=== PATIENT | male | born 1960 | race Caucasian/White ===

== ENCOUNTER 2017-11-14 07:52 | Day surgery (SDC) | payer OTHER ==
[~2017-11-14] VITALS: Ht 182.9 cm; Wt 70.2 kg
[~2017-11-14 07:52] MED LIST: ASPI1TAB69 PO; ATOR40TA16 PO; CLOP75TA PO; LISI-515 PO; MEGE40TA PO; METO25TA3 PO; MULT-65 PO
[2017-11-14] MEDS ORDERED: IOHEXOL 350 MG/ML 100 ML BTL (for Cath Lab) OTHER ONE (07:53)
[2017-11-14] MEDS ORDERED: HEPARIN-NS/PF FLUSH BAG 2,000 ML IV FLUSH ONE (08:25)
[2017-11-14] MEDS ORDERED: HEPARIN SODIUM - IV 10,000 UNITS/10 ML VIAL ONE (08:26)
[2017-11-14] MEDS ORDERED: MIDAZOLAM HCL 2 MG/2 ML VIAL ONE (08:26)
[2017-11-14 09:06] LABS: AUTOMATED NEUTROPHIL # 6.8 TH/MM3 (1.8-7.7); BASOPHIL % 0.5 % (0.0-2.0); EOSINOPHIL # 0.3 TH/MM3 (0-0.4); EOSINOPHIL % 2.8 % (0.0-4.0); HEMATOCRIT 38.1 % (39.0-51.0); HEMOGLOBIN 13.2 GM/DL (13.0-17.0); LYMPH % 16.1 % (9.0-44.0); LYMPHOCYTE # 1.5 TH/MM3 (1.0-4.8); MEAN CELL VOLUME 93.7 FL (80.0-100.0); MEAN CORPUSCULAR HEMOGLOBIN 32.4 PG (27.0-34.0); MEAN CORPUSCULAR HGB CONC 34.6 % (32.0-36.0); MEAN PLATELET VOLUME 6.7 FL (7.0-11.0); MONO % 8.2 % (0.0-8.0); MONOCYTE # 0.8 TH/MM3 (0-0.9); NEUT % 72.4 % (16.0-70.0); PLATELET COUNT 407 TH/MM3 (150-450); RED BLOOD COUNT 4.07 MIL/MM3 (4.50-5.90); RED CELL DISTRIBUTION WIDTH 17.2 % (11.6-17.2); WHITE BLOOD COUNT 9.3 TH/MM3 (4.0-11.0)
[2017-11-14 09:27] LABS: CALCIUM 8.4 MG/DL (8.5-10.1); CREATININE 0.7 MG/DL (0.60-1.30)
[2017-11-14] MEDS ORDERED: ECASA81 PO (09:48)
[2017-11-14] MEDS ORDERED: ENZA40CA PO (09:48)
--- NOTE | 2017-11-14 09:49 | PD.VS.PN ---
Pre-operative Note Pre-operative diagnosis: PAD L LE Planned procedure: aortogram w/ L LE angiogram Interval History: Pt with persistent pain, likely multifactorial. Ready for surgery. Labs: Laboratory Results Test 11/14/17 08:45 Anion Gap 7 MEQ/L (5-15) Blood Urea Nitrogen 20 MG/DL (7-18) Creatinine 0.70 MG/DL (0.60-1.30) Random Glucose 87 MG/DL (74-106) Calcium Level 8.4 MG/DL (8.5-10.1) Sodium Level 142 MEQ/L (136-145) Potassium Level 4.0 MEQ/L (3.5-5.1) Chloride Level 109 MEQ/L (98-107) Carbon Dioxide Level 26.0 MEQ/L (21.0-32.0) Hematocrit 38.1 % (39.0-51.0) Hemoglobin 13.2 GM/DL (13.0-17.0) Mean Corpuscular Hemoglobin 32.4 PG (27.0-34.0) Mean Corpuscular Hemoglobin Concent 34.6 % (32.0-36.0) Mean Corpuscular Volume 93.7 FL (80.0-100.0) Mean Platelet Volume 6.7 FL (7.0-11.0) Platelet Count 407 TH/MM3 (150-450) Red Blood Count 4.07 MIL/MM3 (4.50-5.90) Red Cell Distribution Width 17.2 % (11.6-17.2) White Blood Count 9.3 TH/MM3 (4.0-11.0) Blood: none needed Imaging: CTA from Dec reviewed. Short segment proximal SFA occlusion. Orders: NPO Post-operative destination: [facility]U Operative site marked: Yes Consent: Informed consent has been obtained from Phu Dover III. I have explained the procedure in detail and discussed the risks, benefits, and potential complications. All questions have been answered. Patient contact information: [phone] Brent Giron MD Nov 14, 2017 09:49
[2017-11-14 09:50] VITALS: BP 115/83; PULSE 74; RESP 16; TEMP 97.9; O2SAT 100
[2017-11-14] MEDS ORDERED: SODIUM BICARBONATE 100 MEQ in D5W 1000 ML IV SCH (10:00)
[2017-11-14] MEDS ORDERED: ceFAZolin INJ 1,000 MG VIAL ONE (10:52)
--- NOTE | 2017-11-14 11:01 | CATHPROC ---
[email or web address] HIS Report Study Information Study Number Admission Scheduled Start Study Start [id number] Nov 14 2017 7:52AM 11/14/2017 Nov 14 2017 9:53AM [facility] Service Cath Endovascular Study Admit Source Facility Department Emergency department [facility] - Export Agent Physician and Clinical Staff Initial MD Giron, Brent Store Sales Leader Mela Rouse,RN Recorder Ahsan Cope,RT(R) Scrub Mason Tai,RT(R) Procedures Performed Procedure Location (Site) Vessel Name Abdominal Angiogram Abd Aorta (A3) Aorta Periph stent SFA (left) Femoral Art SIGN LANGUAGE TEACHER SFA (left) Femoral Art Wire insertion Fem Art (right) Femoral Art Equipment Time Accounting Practice Manager Description Size Mfg Part Number Used/Scraped [id number] 10:10 ANGIO-DYNAMICS OMNI FLUSH 65CM CATHETER FR 4 Used *[id number] 10:15 ANGIO-DYNAMICS OMNI FLUSH 65CM CATHETER FR 5 Used *[id number] INTRODUCER SET, 10:10 [employer] FR 5 [id number] *[id number] Used MICROPUNCTURE, STIFFENED CXI-4.0-35-135- 10:19 COOK/REGINA CATHETER, FR4 CXI SUPPORT FR 4 Used P-NS-0 *[id number] SHEATH, FR6 DAVE 1 FLEXOR [id number] 10:17 COOK/REGINA FR 6 Used 55CM *[id number] WIRE, GUIDE APPROACH WAREHOUSE PRODUCTION WORKER [id number] 10:19 COOK/REGINA 300CM Used MICROWIRE *[id number] 10:40 DAIG/ST. [employer] MEDICAL ANGIOSEAL, FR6 VIP FR 6 Used *[id number] ENDOVASCULAR BGC02-27-419- 10:52 STENT, EVERFLEX 6 X 200 120CM 6 X 200 Used COMPANY 120 BALLOON, ADMIRAL EXTREME 5 X [id number] 10:38 [employer] 130CM Used 120 130CM *[id number] 10:28 Primo[employer] WIRE, THRU-WAY 300CM 300CM 17328 *[id number] Used 10:28 [employer] WIRE, THRU-WAY 300CM 300CM 17235 *[id number] Used [id number] 10:10 App Partner PACK, CCL CUSTOM * Used *[id number] 10:10 [employer] MEDICAL PRESSURE TUBING 48" 48" [id number] Used [id number] 10:17 [employer] MEDICAL WIRE, RENDON 260CM .035 260CM Used *[id number] 10:10 NAMIC TUBING, HIGH PRESSURE 20" 20" Used *[id number] TUBING, PRESSURE INJECTION [id number] 10:10 NAMIC PACER 72" Used 72" *[id number] 10:10 NYCOMED OMNIPAQUE, 300 MG, 150ML 150ML [id number] Used 10:10 NYCOMED OMNIPAQUE, 300 MG, 50ML 50ML [id number] Used [id number] 10:10 PADILLA MEDICAL BLANKET,WARM AIR CCL * Used *[id number] 10:10 TERUMO MEDICAL SHEATH, FR4 TERUMO (10CM) FR 4 Used *[id number] WIRE, ANGLED GLIDE .035 [id number] 10:10 TERUMO MEDICAL/REGINA 260CM Used 260CM *[id number] 10:28 VOLCANO CATHETER, PIONEER PLUS FR 6 Used *[id number] Equipment Model, Serial, Lot Number and Expiration Data Description Model Number Serial Number Lot Number Expiration Date ANGIOSEAL, FR6 VIP [id number] 08-08-2018 CATHETER, FR4 CXI SUPPORT [id number] 06-27-2020 SHEATH, FR6 DAVE 1 FLEXOR [id number] 07-29-2020 55CM STENT, EVERFLEX 6 X 200 120CM [id number] 10-01-2020 WIRE, GUIDE APPROACH WAREHOUSE PRODUCTION WORKER [id number] 11-02-2021 MICROWIRE History: Allergies Allergy Reaction No Known Allergies Labs Hgb (g/dl) Hct (%) 11.60-17.00 35.00-51.00 13.2 38.1 Glucose (mg/dl) BUN (mg/dl) Creatinine (mg/dl) BUN:Creatinine (1:x) 74.00-106.00 7.00-18.00 0.50-1.30 10.00-20.00 87 20 0.7 28.6 Na (meq/l) K (meq/l) 136.00-145.00 3.50-5.10 142 4 CPK-MB (ng/ML) 0.50-3.60 Not Drawn Medication Medication Total Dose (Bolus/Oral) Medication Total Dosage/Unit 1% XYLOCAINE 20 mL FENTANYL 150 mcg HEPARIN 5000 units VERSED 2 mg Medications (Bolus/Oral) Medication Time Given Dosage/Unit Administered By Reason VERSED 11/14/2017 10:07:26 AM 1 mg Adamy, Mela 1 mg VERSED given in lab by Mela Rouse RN in Right Groin via Peripheral IV. Ordered by Brent Giron. 1% XYLOCAINE 11/14/2017 10:08:02 AM 20 mL Brent Giron Patient arrived on 20 mL 1% XYLOCAINE given by Brent Giron in Right Groin via Subcutaneous. Ordere d by Brent Giron. FENTANYL 11/14/2017 10:08:15 AM 50 mcg Adamy, Mela 50 mcg FENTANYL given in lab by Mela Rouse RN via Peripheral IV. Ordered by Brent Giron. HEPARIN 11/14/2017 10:18:06 AM 5000 units Mela Rouse 5000 units HEPARIN given in lab by Mela Rouse RN in Right Wrist via Peripheral IV. Ordered by Brent Oconnor. VERSED 11/14/2017 10:20:11 AM 1 mg Adamy, Mela 1 mg VERSED given in lab by Mela Rouse RN via Peripheral IV. Ordered by Brent Giron. FENTANYL 11/14/2017 10:21:28 AM 50 mcg Adamy, Mela 50 mcg FENTANYL given in lab by Mela Rouse RN via Peripheral IV. Ordered by Brent Giron. FENTANYL 11/14/2017 10:44:21 AM 50 mcg Adamy, Mela 50 mcg FENTANYL given in lab by Mela Rouse RN via Peripheral IV. Ordered by Brent Giron. Medication (Drip) Medication Time Given Dosage/Unit Concentration/Unit Diluent (ml) Solution IV Solutions 11/14/2017 10:01:43 AM 0 mL (IV) 500 NaCl .9 Patient arrived on IV Solutions given by Brent Giron in Right Wrist via Peripheral IV. Pump/Drip F low = 20 ml/hr using NaCl .9. Ordered by Brent Giron. KEFZOL 11/14/2017 10:55:44 AM 2 mg 2 mg KEFZOL given in lab by Mela Rouse RN via Peripheral IV. Ordered by Brent Giron. Initial Case Assessment Cardiovascular HR Rhythm NIBP Chest Pain 60 sr 130/74 0 Edema Present Skin color Skin None Normal Warm Dry Circulatory - Right Pulses Femoral 3 Scale (0,1,2,3,4,d) Circulatory - Left Pulses Femoral 3 Scale (0,1,2,3,4,d) Neurological State Oriented to time-place- Alert Moves all extremities person Respiration - General Respiration Rate SpO2 (%) O2 (lpm) (B/min) 18 100 0 Chronological Log Time Study Chronological Log 9:54:09 Patient arrived via Bed. 9:54:10 Patient Name, D.O.B, / Armband Verified By R.N. 9:54:11 Consent signed by the physician and the patient and verified by the Export Agent staff. 9:54:12 Pre-op and post- op instructions given; patient acknowledges understanding of instructions. Vitals capture started with the following parameters, Patient=Adult, Interval=5 min, Initial Pr bleypg=103 mmHg, 10:00:30 Deflation Rate=5 mmHg, Cuff placed on Right Ankle 10:00:56 Verbal Stimulation=2 Physical Stimulation=2 Airway=2 Respiration=2 TOTAL=8. (0=absent, 1=li mited, 2=present) 10:01:00 HR=63 bpm, RYNM=217/74 mmhg, XiS5=479.0 %, Resp=11 B/min, Antonio=2 10:01:06 Patient has been NPO for More than 6Hrs. 10:01:16 Skin Breakdown-hernia present in right groin. 10:01:29 A # 20 IV was noted in the Wrist (right). Grade = 0 Patient arrived on IV Solutions given by Brent Giron in Right Wrist via Peripheral IV. Pump/ Drip Flow = 20 ml/hr 10:01:43 using NaCl .9. Ordered by Brent Giron. 10:02:02 History and physical on the chart or being dictated. 10:02:06 Reference ECG taken Assessment: Initial Case, HR=60 BPM, Rhythm=sr, AQVI=582/74 mmhg, Chest Pain=0, Edema=None, Col or=Normal, Skin = Warm, Dry Right Pulses: Femoral=3 10:02:08 Left Pulses: Femoral=3 Neurological: State=Alert, Ox3, ARRIOLA Respiration: Resp=18 B/min, AcI7=567 %, O2=0 lpm 10:02:39 Bilateral groins prepped with 2% chlorhexidine, and draped after a 3 minute waiting time. 10:06:03 HR=63 bpm, CDYB=548/77 mmhg, EvY9=872.0 %, Resp=18 B/min, Antonio=2 10:06:30 MD arrived. Time Out. Correct patient, correct procedure, correct physician, power injector loaded with con trast with surgical team 10:07:14 present. Time Out Concurred by MD and individual staff in procedure. Loaded by Robyn Rouse rn, ve rified by Mason Tai. 10:07:26 1 mg VERSED given in lab by Mela Rouse, RN in Right Groin via Peripheral IV. Ordered Brent Sánchez. 10:07:51 Case Start 10:07:54 Verbal Stimulation=2 Physical Stimulation=2 Airway=2 Respiration=2 TOTAL=8. (0=absent, 1=li mited, 2=present) Patient arrived on 20 mL 1% XYLOCAINE given by Brent Giron in Right Groin via Subcutaneous. Ordered by Mack 10:08:02 Brent. 10:08:15 50 mcg FENTANYL given in lab by Mela Rouse, JM via Peripheral IV. Ordered by Abiola Giron. 10:09:42 Access site was Right Femoral Artery. A INTRODUCER SET, MICROPUNCTURE, STIFFENED FR 5 was advanced into the Fem Art (right) using the 10:10:01 Percutaneous technique. A SHEATH, FR4 TERUMO (10CM) FR 4 was exchanged in the Fem Art (right). This was necessary in or laure to 10:10:19 accomodate a larger catheter. A OMNI FLUSH 65CM CATHETER FR 4 was advanced over a wire. OMNIPAQUE, 300 MG, 150ML 150ML was us ed for 10:10:27 injections. 10:10:32 Wire removed 10:10:34 Through a OMNI FLUSH 65CM CATHETER FR 5, The Abdominal Aorta was injected with 10 cc's of c ontrast. 10:11:04 HR=64 bpm, TOHZ=005/73 mmhg, SpO2=99.0 %, Resp=7 B/min, Antonio=2 10:11:58 A WIRE, ANGLED GLIDE .035 260CM 260CM was inserted via Fem Art (right). After removing the current catheter a OMNI FLUSH 65CM CATHETER FR 4 was advanced over a WIRE, A NGLED GLIDE 10:12:08 .035 260CM 260CM. 10:13:06 Wire removed 10:13:13 Injections down left leg through 4 spanish omniflush catheter. 10:16:40 HR=61 bpm, TRVV=009/67 mmhg, SpO2=99.0 %, Resp=11 B/min, Antonio=2 10:17:33 A WIRE, RENDON 260CM .035 260CM was inserted via Fem Art (right). A SHEATH, FR6 DAVE 1 FLEXOR 55CM FR 6 was exchanged in the Fem Art (right). This was necessary in order to 10:17:37 accomodate a larger catheter. 10:18:06 5000 units HEPARIN given in lab by Mela Rouse RN in Right Wrist via Peripheral IV. Or dered by Brent Giron. A CATHETER, FR4 CXI SUPPORT FR 4 was advanced over a wire. OMNIPAQUE, 300 MG, 150ML 150ML was u sed for 10:19:39 injections. 10:19:48 The previous wire was exchanged for a WIRE, GUIDE APPROACH WAREHOUSE PRODUCTION WORKER MICROWIRE 300CM. 10:20:11 1 mg VERSED given in lab by Mela Rouse RN via Peripheral IV. Ordered by Rinku Giron 10:21:00 HR=66 bpm, SAES=482/82 mmhg, WsM7=964.0 %, Resp=5 B/min, Antonio=2 10:21:28 50 mcg FENTANYL given in lab by Mela Rouse RN via Peripheral IV. Ordered by Abiola Giron. 10:21:52 The previous wire was exchanged for a WIRE, ANGLED GLIDE .035 260CM 260CM. 10:24:01 The previous wire was exchanged for a WIRE, GUIDE APPROACH WAREHOUSE PRODUCTION WORKER MICROWIRE 300CM. 10:26:05 HR=63 bpm, KPTI=379/68 mmhg, SpO2=98.0 %, Resp=13 B/min, Natonio=2 10:27:45 The previous wire was exchanged for a WIRE, THRU-WAY 300CM 300CM. A CATHETER, PIONEER PLUS FR 6 was advanced over a wire. OMNIPAQUE, 300 MG, 150ML 150ML was used for 10:29:47 injections. 10:30:58 A WIRE, THRU-WAY 300CM 300CM was inserted via Fem Art (right). 10:31:02 HR=62 bpm, VAND=867/60 mmhg, SpO2=97.0 %, Resp=14 B/min, Antonio=2 10:33:41 [place] Catheter was removed 10:34:58 A WIRE, RENDON 260CM .035 260CM was inserted via Fem Art (right). A CATHETER, FR4 CXI SUPPORT FR 4 was advanced over a wire. OMNIPAQUE, 300 MG, 150ML 150ML was u sed for 10:35:04 injections. 10:36:01 HR=58 bpm, ZACI=388/82 mmhg, SpO2=98.0 %, Resp=10 B/min, Antonio=2 10:36:23 Wire removed 10:37:16 Catheter was removed A BALLOON, ADMIRAL EXTREME 5 X 120 130CM 130CM was inserted over WIREJULIETA 260CM .035 260CM v ia the 10:38:33 SFA (left). 10:39:34 In the SFA (left) a BALLOON, ADMIRAL EXTREME 5 X 120 130CM 130CM was inflated to 6 atms for 180 seconds. 10:41:39 HR=60 bpm, PXFU=137/90 mmhg, SpO2=99.0 %, Resp=15 B/min, Antonio=2 10:44:06 In the SFA (left) a BALLOON, ADMIRAL EXTREME 5 X 120 130CM 130CM was inflated to 6 atms for 180 seconds. 10:44:21 50 mcg FENTANYL given in lab by Mela Rouse RN via Peripheral IV. Ordered by Mack R liz. 10:46:04 In the SFA (left) a BALLOON, ADMIRAL EXTREME 5 X 120 130CM 130CM was inflated to 6 atms for 180 seconds. 10:46:08 HR=59 bpm, EBEC=631/88 mmhg, YuR4=549.0 %, Resp=15 B/min, Antonio=2 10:48:58 Balloon Removed. 10:51:13 HR=57 bpm, DRYS=273/78 mmhg, SpO2=98.0 %, Resp=6 B/min, Antonio=2 A STENT, EVERFLEX 6 X 200 120CM 6 X 200 was advanced through a catheter over a WIRE, RENDON 260C M .035 10:51:20 260CM. A STENT, EVERFLEX 6 X 200 120CM 6 X 200 was deployed at ~CYDNEY~ atmospheres for ~SECONDS~ seconds in the SFA 10:52:00 (left). Self Expanding stent deployed. 10:53:21 Delivery device removed A BALLOON, ADMIRAL EXTREME 5 X 120 130CM 130CM was inserted over WIRE, RENDON 260CM .035 260CM v ia the 10:55:27 SFA (left). 10:55:39 In the SFA (left) a BALLOON, ADMIRAL EXTREME 5 X 120 130CM 130CM was inflated to 6 atms for 20 seconds. 10:55:44 2 mg KEFZOL given in lab by Mela Rouse RN via Peripheral IV. Ordered by Rinku Giron 10:56:12 HR=57 bpm, JDAZ=991/77 mmhg, SpO2=98.0 %, Resp=25 B/min, Antonio=2 10:56:40 Balloon Removed. 10:56:41 Wire removed 10:57:03 ANGIOSEAL, FR6 VIP FR 6 placement in the Fem Art (right) 10:58:15 Sterile dressing applied to site 10:58:16 No case complications noted. 10:58:18 Cine recording checked. 10:58:20 Bedside Report will be given. 10:58:21 Implantable Device card placed in patient's chart. 11:00:05 Patient moved to stretcher 11:01:09 Vitals capture stopped. End Study - Contrast Media Used In Study Contrast Total Opened (mL) Total Used (mL) Total Wasted (mL) Omnipaque 55 55 0 End Study - Maximum Contrast Load Max Contrast Load (mL) 493.5 End Study - Radiation Exposure Fluoro Time (minutes) 14.3 End Study - Patient Disposition Complications Transferred To No Telemetry Bed
--- NOTE | 2017-11-14 11:12 | HHI.PR ---
cc: Brent Giron MD Immediate Post Op Note Procedure Date: Nov 14, 2017 Pre Op Diagnosis: PAD , L LE claudication Post Op Diagnosis: PAD , L LE claudication Surgeon: Brent Giron Motion Picture Director(s): none Procedure: Aortogram w/ L LE angiogram L SFA ROAD REPAIRER /stent Findings: L SFA occlusion, recanalized and ROAD REPAIRER/stent (6x200) Additional Information: R CLEANER ASSISTANT Angioseal Complications: none Estimated blood loss: 10mL Anesthesia: MAC Drains: None Patient to: Other (DOCU) Patient Condition: Good Implant/Devices: SEE IMPLANT LOG (if applicable) Date/Time of Procedure: SEE SURGICAL CARE RECORD Brent Giron MD Nov 14, 2017 11:12
[2017-11-14] MEDS ORDERED: CLOPIDOGREL 75 MG TAB PO ONE (11:15)
--- NOTE | 2017-11-14 20:11 | MP ---
cc: Brent Giron MD, Robert J MD DATE OF OPERATION: 11/14/2017 PREOPERATIVE DIAGNOSIS: Left lower extremity claudication, peripheral arterial occlusive disease. POSTOPERATIVE DIAGNOSIS: Left lower extremity claudication, peripheral arterial occlusive disease. PROCEDURE 1. Aortogram with left lower extremity angiogram. 2. Left superficial femoral artery angioplasty and stent with a 6 x 200 self-expanding stent. 3. Right common femoral artery Angio-Seal. ATTENDING SURGEON: Brent Giron MD ANESTHESIA: Local with sedation. INDICATIONS: Mr. Dover is a 57-year-old gentleman with left lower extremity peripheral vascular occlusive disease and leg pain that is multifactorial, but likely includes a component of vasculogenic claudication. He is taken to the operating room for angiographic evaluation and treatment. There was no prior catheter-based imaging available for my review. PROCEDURE IN DETAIL: Informed consent was obtained from the patient. He was taken to the operating room and placed supine on the operating room table. An appropriate timeout was taken to ensure patient's identity, the operative site and the planned procedure. Ancef 2 grams was initiated prior to the stent implantation and will be discontinued after a single preoperative dose. Everyone in the room agreed with the timeout and we proceeded. His bilateral groins were prepped and draped. The right groin was anesthetized with 1% lidocaine. A 21-gauge micropuncture needle was used to access to the right common femoral artery. This was exchanged using Seldinger technique for a micropuncture sheath, through which a 0.035 Glidewire was introduced and the micropuncture sheath was exchanged for a 4-Kazakh sheath. A VCF catheter was placed over the wire and through the sheath and the aortogram and pelvic arteriogram was obtained. The Glidewire was navigated down to the left common femoral artery. The VCF catheter was advanced over this and the left lower extremity arteriogram was obtained. The patient was systemically heparinized with 5000 units of IV heparin. A 0.035 Wang wire was advanced down to the proximal superficial femoral artery and the VCF catheter and 4-Kazakh sheath were removed and a 6-Kazakh 55 cm Amplatz sheath was introduced. A CXI catheter was placed over the wire and through the sheath and a FIBER GLASS WORKER wire was exchanged in lieu of the Wang wire. The FIBER GLASS WORKER wire and CXI catheter were advanced down to the mid superficial femoral artery, but could not be traversed past this due to the calcific nature of the lesions. The FIBER GLASS WORKER wire was exchanged for a Glidewire and this was used to navigate down to the distal superficial femoral artery and we reentered the true lumen in the popliteal artery. This was confirmed angiographically by advancing the CXI catheter. A Wang wire was reintroduced and the entire superficial femoral artery was angioplastied with a 5 mm balloon. The completion angiogram showed a residual stenosis and this was treated with a 6 x 200 balloon which was post-dilated to 5 mm. Completion angiogram showed excellent result without any recoil, extravasation or flow-limiting dissection. There were no embolic complications. The wire, catheter and sheath were removed and the groin was closed with Angio-Seal. There were no complications. I was present, scrubbed and performed the entire procedure. INTERPRETATION: The patient has patent infrarenal aorta, common iliac arteries, external iliac arteries and hypogastric arteries bilaterally. The left common femoral artery is calcified, but minimal luminal encroachment on the 2-D angiography. The profunda is patent. The superficial femoral artery is occluded after about 1 cm and then reconstitutes via profunda based collaterals down to the above-knee popliteal artery. After recanalizing the superficial femoral artery and angioplasty, there is no residual stenosis. The completion angiogram showed excellent technical result with no embolic complications. MD CYDNEY Parker//an , 06:01 PM , 07:53 PM
== END 2017-11-14 14:15 | disposition home or self-care (01) ==
LOC: HDOC 07:52 → HDIC 07:58 → HDOC 14:15
PROVIDERS: ATTEND Surgery
DX: I73.9 Peripheral vascular disease, unspecified (principal); F10.21 Alcohol dependence, in remission; I10 Essential (primary) hypertension; E78.5 Hyperlipidemia, unspecified; E43 Unspecified severe protein-calorie malnutrition; Z68.21 Body mass index [BMI] 21.0-21.9, adult; M25.529 Pain in unspecified elbow; C61 Malignant neoplasm of prostate; C41.9 Malignant neoplasm of bone and articular cartilage, unspecified; F17.210 Nicotine dependence, cigarettes, uncomplicated
CPT/HCPCS: 37226; 75625; 75710; 80048; 85025; 99152; 99153; C1725; C1751; C1760; C1769; C1876; C1893; G0269; J0690; J1644; J2250; J3010; J7070; Q9967

== ENCOUNTER 2018-01-07 08:43 | Day surgery (SDC) | payer OTHER ==
[~2018-01-07] VITALS: Ht 182.9 cm; Wt 73.0 kg
[~2018-01-07 08:43] MED LIST changes: -ASPI1TAB69 PO; +ECASA81 PO; +ENZA40CA PO
[2018-01-07] MEDS ORDERED: IOHEXOL 350 MG/ML 50 ML BTL (for Cath Lab) OTHER ONE (08:44)
[2018-01-07 09:24] VITALS: BP 135/83; PULSE 80; RESP 18; TEMP 98.9; O2SAT 99
--- NOTE | 2018-01-07 09:26 | HHI.HP ---
History of Present Illness Chief Complaint: R LE claudication History of Present Illness 57 yo male with PAD s/p L LE intervention back in November. Now c/o R LE claudication. No tissue loss and no rest pain. Past/Family/Social History Past Medical History PAD HTN XOL prostate CA Past Surgical History L LE angio/stent IHR Social History non smoker Family History NC Home Medications Reported Medications Enzalutamide (Xtandi) 40 Mg Cap, 160 MG PO DAILY for Chemotherapy Management, # 120 CAP 0 Refills 11/14/[address] (Aspirin DR) 81 Mg Tabdr, 81 MG PO DAILY, TAB 0 Refills 11/14/17 Multiple Vitamin (Multi-Vitamin Daily) 1 Tab Tab, 1 TAB PO DAILY for Nutritional Supplement, TAB 0 Refills 07/27/16 Megestrol (Megestrol) 40 Mg Tab, 40 MG PO BID, TAB 0 Refills 07/27/16 Metoprolol Tartrate (Metoprolol Tartrate) 25 Mg Tab, 25 MG PO BID, #60 TAB 0 Refills 07/27/16 Clopidogrel (Clopidogrel) 75 Mg Tab, 75 MG PO DAILY for Blood Clot Prevention, # 30 TAB 0 Refills 07/27/16 Lisinopril (Lisinopril) 20 Mg Tab, 20 MG PO DAILY, #30 TAB 0 Refills 07/27/16 Atorvastatin (Atorvastatin) 40 Mg Tab, 40 MG PO HS for Cholesterol Management, # 30 TAB 0 Refills 07/27/16 Coded Allergies: No Known Allergies (Verified Allergy, Unknown, 01/07/18) Review of Systems Constitutional: DENIES: Fever Cardiovascular: COMPLAINS OF: Claudication, DENIES: Chest pain Physical Exam Neuro: alert, oriented, no distress HEENT: NC/AT Neck: trachea midline Heart: reg rate Lungs: clear Abdomen: soft Vascular: palapble femoral B ABIs 0.7/1.0 pending Caprini VTE Risk Assessment Caprini VTE Risk Assessment: No/Low Risk (score <= 1) Caprini Risk Assessment Model Point Value = 1 Point Value = 2 Point Value = 3 Point Value = 5 Age 41-60 Minor surgery BMI > 25 kg/m2 Swollen legs Varicose veins or History of unexplained or recurrent spontaneous Oral contraceptives or hormone replacement Sepsis (< 1 month) Serious lung disease, including pneumonia (< 1 month) Abnormal pulmonary function Acute myocardial infarction Congestive heart failure (< 1 month) History of inflammatory bowel disease Medical patient at bed rest Age 61-74 Arthroscopic surgery Major open surgery (> 45 min) Laparoscopic surgery (> 45 min) Malignancy Confined to bed (> 72 hours) Immobilizing plaster cast Central venous access Age >= 75 History of VTE Family history of VTE Factor V Leiden Prothrombin 60520H Lupus anticoagulant Anticardiolipin antibodies Elevated serum homocysteine Heparin-induced thrombocytopenia Other congenital or acquired thrombophilia Stroke (< 1 month) Elective arthroplasty Hip, pelvis, or leg fracture Acute spinal cord injury (< 1 month) Prophylaxis Regimen Total Risk Factor Score Risk Level Prophylaxis Regimen 0-1 Low Early ambulation 2 Moderate Order ONE of the following: *Sequential Compression Device (SCD) *Heparin 5000 units SQ BID 3-4 Higher Order ONE of the following medications: *Heparin 5000 units SQ TID *Enoxaparin/Lovenox 40 mg SQ daily (WT < 150 kg, CrCl > 30 mL/min) *Enoxaparin/Lovenox 30 mg SQ daily (WT < 150 kg, CrCl > 10-29 mL/min) *Enoxaparin/Lovenox 30 mg SQ BID (WT < 150 kg, CrCl > 30 mL/min) AND/OR *Sequential Compression Device (SCD) 5 or more Highest Order ONE of the following medications: *Heparin 5000 units SQ TID (Preferred with Epidurals) *Enoxaparin/Lovenox 40 mg SQ daily (WT < 150 kg, CrCl > 30 mL/min) *Enoxaparin/Lovenox 30 mg SQ daily (WT < 150 kg, CrCl > 10-29 mL/min) *Enoxaparin/Lovenox 30 mg SQ BID (WT < 150 kg, CrCl > 30 mL/min) AND *Sequential Compression Device (SCD) Assessment and Plan Plan R LE angiogram and endovascular intervention anticipate d/c later today Discharge Planning today from DOCU after angio Brent Giron MD January 07, 2018 09:26
[2018-01-07] MEDS ORDERED: SODIUM BICARBONATE 100 MEQ in D5W 1000 ML IV SCH (09:30)
[2018-01-07] MEDS ORDERED: SODIUM CHLORIDE 0.9% FLUSH 10 ML FLUSH IV FLUSH PRN ×2 (09:30)
[2018-01-07] MEDS ORDERED: AMIT100T2 PO (09:48)
[2018-01-07] MEDS ORDERED: PERC10TA27 PO (09:48)
[2018-01-07] MEDS ORDERED: HEPARIN-NS/PF FLUSH BAG 1,000 ML IV FLUSH ONE (10:25)
[2018-01-07] MEDS ORDERED: MIDAZOLAM HCL 2 MG/2 ML VIAL ONE (10:26)
[2018-01-07] MEDS ORDERED: LIDOCAINE HCL 1% PF 30 ML VIAL ONE (10:26)
[2018-01-07] MEDS ORDERED: HEPARIN SODIUM - IV 10,000 UNITS/10 ML VIAL ONE (10:26)
--- NOTE | 2018-01-07 11:21 | HHI.PR ---
cc: Brent Giron MD Immediate Post Op Note Procedure Date: January 07, 2018 Pre Op Diagnosis: PAD, R LE Post Op Diagnosis: PAD, R LE Surgeon: Brent Giron [employer] Faculty Member(s): none Procedure: Aortogram w/ R LE angiogram R SFA orbital atherectomy and REPORTING COORDINATOR (5mm) L INSIDE OUTSIDE SALES REPRESENTATIVE angioseal Findings: calcific SFA tandem stenoses Additional Information: 3 vessel runoff to foot Complications: none Specimen(s) removed: none Estimated blood loss: 10mL Anesthesia: MAC Drains: None Patient to: Other (DOCU) Patient Condition: Good Implant/Devices: SEE IMPLANT LOG (if applicable) Date/Time of Procedure: SEE SURGICAL CARE RECORD Brent Giron MD January 07, 2018 11:21
--- NOTE | 2018-01-07 11:24 | CATHPROC ---
[facility] HIS Report Study Information Study Number Admission Scheduled Start Study Start [id number] Jan 07 2018 8:43AM 01/07/2018 Jan 07 2018 10:20AM [place] Cath Endovascular Study Admit Source Facility Department Other [facility] - Software Computer Specialist Physician and Clinical Staff Initial MD Giron, Brent Crew Car Driver Mela Rouse,RN Recorder Ahsan Cope,RT(R) Scrub Mason Tai,RT(R) Procedures Performed Procedure Location (Site) Vessel Name Abdominal Angiogram Abd Aorta (A3) Aorta STEAK TENDERIZER MACHINE SFA (right) Femoral Art Wire insertion Fem Art (right) Femoral Art Equipment Time Machine Operator Cane Cutter Description Size Mfg Part Number Used/Scraped [id number] 10:32 ANGIO-DYNAMICS OMNI FLUSH 65CM CATHETER FR 4 Used *[id number] DBP- CARDIOVASCULAR CATHETER, STEALTH SOLID 10:48 [id number] Used SYSTEMS INC. 2.0MM *[id number] CARDIOVASCULAR LUBRICANT, VIPERSLIDE VPR-SLD2 10:47 Used SYSTEMS INC. ATHERCTOMY *[id number] CARDIOVASCULAR VPR-GW-14 10:47 WIRE, FIRM (VIPER) 335 Used SYSTEMS INC. *[id number] INTRODUCER SET, 10:31 COOK INC. FR 5 [id number] *[id number] Used MICROPUNCTURE STIFF CXI-4.0-35-135- 10:41 COOK/REGINA CATHETER, FR4 CXI SUPPORT FR 4 Used P-NS-0 *[id number] SHEATH, FR6 DAVE 1 FLEXOR [id number] 10:41 COOK/REGINA FR 6 Used 55CM *[id number] WIRE, GUIDE APPROACH SIEVE GRADER TENDER [id number] 10:41 COOK/REGINA 300CM Used MICROWIRE *[id number] WIRE, RENDON CURVED GUIDE [id number] 10:41 COOK/REGINA 260CM Used 260CM *[id number] 11:08 DAIG/ST. H[employer]OL[employer] MEDICAL ANGIOSEAL, FR6 VIP FR 6 Used *[id number] BALLOON, ADMIRAL XTREME 5 X 10:59 [employer]EC [employer] 5 X 300 [id number] Used 300 LONG 130CM [id number] 10:31 Seismic Software PACK, CCL CUSTOM * Used *[id number] 10:41 [employer] MEDICAL 30 CYDNEY INDEFLATOR Used *[id number] TUBING, PRESSURE INJECTION [id number] 10:31 NAMIC PACER 72" Used 72" *[id number] 10:31 NYCOMED OMNIPAQUE, 300 MG, 150ML 150ML [id number] Used 10:31 NYCOMED OMNIPAQUE, 300 MG, 50ML 50ML [id number] Used [id number] 10:31 [employer]ILL[employer] BLANKET,WARM AIR CCL * Used *[id number] 10:32 TERUMO MEDICAL SHEATH, FR4 TERUMO (10CM) FR 4 Used *[id number] WIRE, ANGLED GLIDE .035 [id number] 10:31 TERUMO MEDICAL/REGINA 260CM Used 260CM *[id number] Equipment Model, Serial, Lot Number and Expiration Data Description Model Number Serial Number Lot Number Expiration Date ANGIOSEAL, FR6 VIP [id number] 10-09-2018 CATHETER, FR4 CXI SUPPORT [id number] 09-27-2020 CATHETER, STEALTH SOLID 2.0MM [id number] 10-09-2019 SHEATH, FR6 DAVE 1 FLEXOR [id number] 10-08-2020 55CM WIRE, FIRM (VIPER) 335 [id number] 09-08-2019 WIRE, GUIDE APPROACH SIEVE GRADER TENDER [id number] 02-24-2022 MICROWIRE WIRE, RENDON CURVED GUIDE [id number] 10-11-2022 260CM Medication Medication Total Dose (Bolus/Oral) Medication Total Dosage/Unit 1% XYLOCAINE 20 mL FENTANYL 100 mcg HEPARIN 5000 units NTG (IC) 200 mcg VERSED 2 mg Medications (Bolus/Oral) Medication Time Given Dosage/Unit Administered By Reason VERSED 01/07/2018 10:33:07 AM 2 mg Mela Rouse 2 mg VERSED given in lab by Mela Rouse RN via Peripheral IV. Ordered by Brent Giron. FENTANYL 01/07/2018 10:34:20 AM 50 mcg Mela Rouse 50 mcg FENTANYL given in lab by Mela Rouse, JM via Peripheral IV. Ordered by Brent Giron. 1% XYLOCAINE 01/07/2018 10:35:20 AM 20 mL Brent Giron 20 mL 1% XYLOCAINE given in lab by Brent Giron in Left Groin via Subcutaneous. Ordered by Brent Giron. HEPARIN 01/07/2018 10:42:19 AM 5000 units Mela Rouse 5000 units HEPARIN given in lab by Mela Rouse, JM via Peripheral IV. Ordered by Brent Giron. FENTANYL 01/07/2018 10:54:39 AM 50 mcg Mela Rouse 50 mcg FENTANYL given in lab by Meal Rouse, JM via Peripheral IV. Ordered by Brent Giron. NTG (IC) 01/07/2018 10:56:19 AM 200 mcg Brent Giron 200 mcg NTG (IC) given in lab by Brent Giron via Intra-arterial. Ordered by Brent Giron. Medication (Drip) Medication Time Given Dosage/Unit Concentration/Unit Diluent (ml) Solution SODIUM BICARBONATE 01/07/2018 10:29:03 AM 18.75 mL/hr 150 1000 NaCl .9 DRIP Patient arrived on 18.75 mL/hr SODIUM BICARBONATE DRIP in Left Antecubital via Peripheral IV. Pump/Dr ip Flow = 125 ml/hr using NaCl .9 with a concentration of 150 in 1000 ml. Initial Case Assessment Cardiovascular HR Rhythm NIBP Chest Pain 70 sr 153/85 0 Edema Present Skin color Skin None Normal Warm Dry Circulatory - Right Pulses Femoral 2 Scale (0,1,2,3,4,d) Circulatory - Left Pulses Femoral 2 Scale (0,1,2,3,4,d) Neurological State Oriented to time-place- Alert Moves all extremities person Respiration - General Respiration Rate SpO2 (%) O2 (lpm) (B/min) 18 100 0 Chronological Log Time Study Chronological Log 10:19:46 Patient arrived via Bed. 10:19:47 Patient Name, D.O.B, / Armband Verified By R.N. 10:19:48 Consent signed by the physician and the patient and verified by the Software Computer Specialist staff. 10:19:50 Pre-op and post- op instructions given; patient acknowledges understanding of instructions. Vitals capture started with the following parameters, Patient=Adult, Interval=5 min, Initial Pr xicqcv=409 mmHg, 10:24:26 Deflation Rate=5 mmHg, Cuff placed on Right Ankle 10:25:25 HR=67 bpm, UOHS=420/85 mmhg, SpO2=99.0 %, Resp=12 B/min, Antonio=2 10:26:47 Verbal Stimulation=2 Physical Stimulation=2 Airway=2 Respiration=2 TOTAL=8. (0=absent, 1=li mited, 2=present) 10:26:56 Presedation assessment performed by Software Computer Specialist RN. 10:26:58 Patient has been NPO for More than 6Hrs. 10:27:04 Skin Breakdown-none present per patient. 10:28:43 Reference ECG taken 10:28:45 A # 20 IV was noted in the Wrist (left). Grade = 0 Patient arrived on 18.75 mL/hr SODIUM BICARBONATE DRIP in Left Antecubital via Peripheral IV. P ump/Drip Flow = 10:29:03 125 ml/hr using NaCl .9 with a concentration of 150 in 1000 ml. 10:29:25 History and physical on the chart or being dictated. Assessment: Initial Case, HR=70 BPM, Rhythm=sr, OPIK=802/85 mmhg, Chest Pain=0, Edema=None, Col or=Normal, Skin = Warm, Dry Right Pulses: Femoral=2 10:29:27 Left Pulses: Femoral=2 Neurological: State=Alert, Ox3, ARRIOLA Respiration: Resp=18 B/min, UaK6=101 %, O2=0 lpm 10:30:02 HR=66 bpm, LIEU=708/91 mmhg, ToX7=061.0 %, Resp=9 B/min 10:30:12 Bilateral groins prepped with 2% chlorhexidine, and draped after a 3 minute waiting time. 10:33:07 2 mg VERSED given in lab by Mela Rouse RN via Peripheral IV. Ordered by Rinku Giron 10:34:20 50 mcg FENTANYL given in lab by Mela Rouse RN via Peripheral IV. Ordered by Abiola Giron. Time Out. Correct patient, correct procedure, correct physician, power injector loaded with con trast with surgical team 10:34:38 present. Time Out Concurred by MD and individual staff in procedure. Loaded by Robyn Rouse rn, ve rified by Mason Tai. 10:35:05 HR=70 bpm, EILV=619/93 mmhg, SpO2=99.0 %, Resp=8 B/min, Antonio=2 10:35:05 Case Start 10:35:20 20 mL 1% XYLOCAINE given in lab by Brent Giron in Left Groin via Subcutaneous. Ordered b Brent Nelson. 10:35:32 Access site was Left Femoral Artery. A INTRODUCER SET, MICROPUNCTURE STIFF FR 5 was advanced into the Fem Art (left) using the Percu taneous 10:35:51 technique. A SHEATH, FR4 TERUMO (10CM) FR 4 was exchanged in the Fem Art (left). This was necessary in ord er to 10:36:04 accomodate a larger catheter. A OMNI FLUSH 65CM CATHETER FR 4 was advanced over a wire. OMNIPAQUE, 300 MG, 150ML 150ML was us ed for 10:37:21 injections. 10:37:34 Through a OMNI FLUSH 65CM CATHETER FR 4, The Abdominal Aorta was injected with 10 cc's of c ontrast. 10:38:19 A WIRE, ANGLED GLIDE .035 260CM 260CM was inserted via Fem Art (right). 10:39:54 Wire removed 10:40:02 HR=70 bpm, XYPJ=668/77 mmhg, SpO2=95.0 %, Resp=13 B/min 10:42:01 A WIRE, RENDON CURVED GUIDE 260CM 260CM was inserted via Fem Art (right). A SHEATH, FR6 DAVE 1 FLEXOR 55CM FR 6 was exchanged in the Fem Art (right). This was necessary in order to 10:42:15 accomodate a larger catheter. 10:42:19 5000 units HEPARIN given in lab by Mela Rouse RN via Peripheral IV. Ordered by Brent Giron. A CATHETER, FR4 CXI SUPPORT FR 4 was advanced over a wire. OMNIPAQUE, 300 MG, 150ML 150ML was u sed for 10:44:25 injections. 10:45:01 HR=68 bpm, OOSL=760/77 mmhg, SpO2=96.0 %, Resp=16 B/min, Antonio=2 10:46:12 The previous wire was exchanged for a WIRE, GUIDE APPROACH SIEVE GRADER TENDER MICROWIRE 300CM. 10:47:21 The previous wire was exchanged for a WIRE, FIRM (VIPER) 335. 10:49:58 HR=69 bpm, SIKQ=859/79 mmhg, SpO2=96.0 %, Resp=16 B/min, Antonio=2 10:51:34 An CATHETER, STEALTH SOLID 2.0MM catheter was inserted into the SFA (right). 10:53:35 2.0 Solid catheter in use in Right SFA. 10:54:39 50 mcg FENTANYL given in lab by Mela Rouse, JM via Peripheral IV. Ordered by Abiola Giron. 10:55:36 HR=63 bpm, EGTD=292/105 mmhg, SpO2=98.0 %, Resp=9 B/min, Antonio=2 10:56:19 200 mcg NTG (IC) given in lab by Brent Giron via Intra-arterial. Ordered by Stanford Giron rt. 10:57:53 2.0 Catheter was removed 11:00:12 HR=67 bpm, YYZG=997/98 mmhg, SpO2=92.0 %, Resp=13 B/min, Antonio=2 A BALLOON, ADMIRAL XTREME 5 X 300 LONG 130CM 5 X 300 was inserted over CARA HANKINS (RHONDA) 335 v ia the SFA 11:03:31 (right). In the SFA (right) a BALLOON, ADMIRAL XTREME 5 X 300 LONG 130CM 5 X 300 was inflated to 8 atms for 120 11:03:47 seconds. 11:05:05 HR=67 bpm, TKEK=422/94 mmhg, SpO2=91.0 %, Resp=17 B/min, Antonio=2 In the SFA (right) a BALLOON, ADMIRAL XTREME 5 X 300 LONG 130CM 5 X 300 was inflated to 8 atms for 120 11:06:16 seconds. 11:08:50 Balloon Removed. 11:10:06 HR=66 bpm, ANFC=533/97 mmhg, SpO2=94.0 %, Resp=13 B/min, Antonio=2 11:12:05 Wire removed 11:12:30 A JULIETA HANKINS CURVED GUIDE 260CM 260CM was inserted via Fem Art (right). 11:13:52 Sheath removed; pressure applied to access site. 11:13:54 ANGIOSEAL, FR6 VIP FR 6 placement in the Fem Art (left) 11:15:01 HR=64 bpm, YZSZ=427/96 mmhg, SpO2=96.0 %, Resp=28 B/min, Antonio=2 11:15:54 Case End 11:20:49 XUYW=972/93 mmhg, SpO2=92.0 %, Antonio=2 11:21:45 Patient moved to [facility] End Study - Contrast Media Used In Study Contrast Total Opened (mL) Total Used (mL) Total Wasted (mL) Omnipaque 40 40 0 End Study - Radiation Exposure Fluoro Time (minutes) 13.3 End Study - Patient Disposition Complications Transferred To No Telemetry Bed
[2018-01-07] MEDS ORDERED: CLOPIDOGREL 75 MG TAB PO ONE (11:30)
[2018-01-07] MEDS ORDERED: METOPROLOL TARTRATE 25 MG TAB PO ONE (12:15)
[2018-01-07] MEDS ORDERED: LISINOPRIL 20 MG TAB PO ONE (12:15)
[2018-01-07] MEDS ORDERED: oxyCODONE/ACETAMINOPHEN 10 MG/325 MG TAB PO PRN (12:15)
[2018-01-07 12:40] LABS: CREATININE 0.66 MG/DL (0.60-1.30)
--- NOTE | 2018-01-07 14:41 | MP ---
cc: Brent Giron MD DATE OF OPERATION: 01/07/2018 PREOPERATIVE DIAGNOSIS: Right lower extremity peripheral arterial occlusive disease with claudication. POSTOPERATIVE DIAGNOSIS: Right lower extremity peripheral arterial occlusive disease with claudication. PROCEDURES: 1. Right lower extremity aortogram with right lower extremity angiograms. 2. Right superficial femoral artery orbital atherectomy with angioplasty with 5 mm balloon. 3. Left common femoral Angio-Seal. ATTENDING SURGEON: Brent Giron MD ANESTHESIA: Local with sedation. INDICATIONS: Mr. Dover is a 57-year-old gentleman with bilateral lower extremity claudication. His left leg feels better after endovascular intervention. He was taken to the operating room for endovascular evaluation and potential treatment of his right lower extremity. There is no prior catheter-based imaging available for my review of his right lower extremity, nor his aorta since the worsening of his right lower extremity claudication. DESCRIPTION OF PROCEDURE: Informed consent was obtained from the patient. He was taken to the operating room and placed supine on the operating room table. An appropriate timeout was taken to ensure the patient's identity, operative site, and planned procedure. The administration of antibiotics was not necessary, as this is a clean procedure without the planned implantation of any foreign object. Everyone in the room agreed with the timeout and we proceeded. His bilateral groins were prepped and draped, and the left groin was anesthetized with 1% lidocaine. A 21-gauge micropuncture needle was used to access the left common femoral artery. This was exchanged using Seldinger technique for micropuncture sheath, through which a 0.035 Glidewire was introduced. The micropuncture sheath was exchanged for a 4-Romanian sheath. A VCF catheter was placed over the wire and through the sheath and aortogram and pelvic arteriogram was obtained. The Glidewire was reintroduced and navigated down to the right common femoral artery. The VCF catheter was advanced over this and the right lower extremity arteriogram was obtained. The patient was systemically heparinized with 5000 units of IV heparin. A 0.035 Wang wire was introduced through the VCF catheter, and the VCF catheter and 4-Romanian sheath were removed and a 6-Romanian 55 cm Davis sheath was then introduced. A CXI catheter was placed over the Wang, the Wang was exchanged for a MOLDER WAX BALL wire. Using the MOLDER WAX BALL wire, we were able navigate into the distal SFA and the CXI catheter was advanced over this. An angiogram confirmed we were into the distal SFA, and a FiberWire was then placed and the CXI catheter was removed. The SFA was atherectomized using orbital atherectomy device and post-angioplastied with a 5 mm balloon. The completion angiogram showed excellent result with no recoil extravasation and no flow-limiting dissection. The wire, catheter and sheath were removed and the groin was closed with an Angio-Seal. There were no complications. I was present and scrubbed for the entire procedure. INTERPRETATION OF IMAGES: The patient has a patent infrarenal aorta, common iliac arteries, external arteries and hypogastric arteries bilaterally. There is no hemodynamically significant stenosis. The right common femoral and profunda are patent. The right SFA has several high-grade boulder-like calcific stenoses and a miles occlusion of the mid to distal SFA at the adductor canal. The popliteal artery is patent, and there was 3-vessel runoff to the ankle and 2-vessel runoff to the foot. After orbital atherectomy and angioplasty, there were no further flow-limiting lesions, nor any dissection or extravasation noted. MD CYDNEY Parker/ALEXANDREA , 02:20 PM , 02:40 PM
[2018-01-07] MEDS ORDERED: METOPROLOL TARTRATE 25 MG TAB PO SCH (21:00)
[2018-01-08] MEDS ORDERED: LISINOPRIL 20 MG TAB PO SCH (09:00)
[2018-01-08] MEDS ORDERED: CLOPIDOGREL 75 MG TAB PO SCH (09:00)
== END 2018-01-07 14:20 | disposition home or self-care (01) ==
LOC: HDOC 08:43 → HDIC 08:44 → HDOC 14:20
PROVIDERS: ATTEND Surgery
DX: I70.211 Atherosclerosis of native arteries of extremities with intermittent claudication, right leg (principal); I10 Essential (primary) hypertension; Z85.46 Personal history of malignant neoplasm of prostate; Z79.82 Long term (current) use of aspirin
CPT/HCPCS: 37225; 75625; 75710; 82565; 99152; 99153; C1714; C1725; C1751; C1760; C1769; C1893; G0269; J1644; J2250; J3010; Q9967